=== PATIENT | female | born 2000 ===

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

== ENCOUNTER 2022-07-07 18:29 | Emergency (ER) | payer MEDICAID, SELFPAY ==
[2022-07-07] VITALS (17 sets, daily range): BP systolic 102–133; BP diastolic 53–110; PULSE 70–95; RESP 16–35; TEMP 36.6; O2SAT 96–100; BMI 22.3
--- NOTE | 2022-07-07 19:20 | DI.US.S_ITS ---
PROCEDURE: US ABDOMEN LIMITED INDICATIONS: EPIGASTRIC PAIN RADIATING TO BACK TECHNIQUE: Real-time focused scanning was performed of the abdomen, with image documentation. COMPARISON: [facility], CT, CT ABDOMEN PELVIS W CON, 07/07/2022, 21:16. FINDINGS: The liver demonstrates increased no focal mass lesions. The gallbladder demonstrates no stones, wall thickening, or pericholecystic fluid. No intra or extrahepatic biliary ductal dilatation. Visualized pancreas appears unremarkable sonographically. IMPRESSION: 1. No evidence of cholelithiasis or cholecystitis. Dictated by: Robin Lazar M.D. on 07/07/2022 at 21:22 Approved by: Robin Lazar M.D. on 07/07/2022 at 21:23
--- NOTE | 2022-07-07 19:21 | ED.ABDPAIN ---
HPI - Abdominal Pain General Chief Complaint: Abdominal Pain Stated Complaint: sick for three days, not eating, shaking, vomiting Time Seen by Provider: 07/07/22 19:00 Source: patient Mode of arrival: Wheelchair History of Present Illness HPI narrative: 21-year-old female nonsmoker with history of asthma presents with family in the chief complaint of 3 or 4 days of abdominal pain, nausea and vomiting. She states that she is never had this before and denies exposure to ill persons. She denies any new medications or dietary change. She states that she has severe epigastric pain that radiates to her back. It seems to be made worse by pretty much everything which includes motion, vomiting and eating. She is had a few episodes of loose stools. She is feeling a bit weak and lightheaded. She denies any fever or chills. Related Data Home Medications Medication Instructions Recorded Confirmed albuterol sulfate 90 mcg/actuation 1 - 2 puff inhalation Q4HR PRN 12/16/18 05/22/22 aerosol inhaler cough, wheeze, sob Previous Rx's Medication Instructions Recorded albuterol sulfate 0.63 mg/3 mL 0.63 mg (3 mL) inhalation QID PRN 04/21/21 solution for nebulization shortness of breath or wheezing #75 mL albuterol sulfate 90 mcg/actuation 2 puff inhalation Q4-6H PRN 04/21/21 aerosol inhaler shortness of breath or wheezing #8.5 grams citalopram 10 mg tablet 10 mg PO DAILY #60 tabs 05/22/22 fluticasone propionate 44 2 puff inhalation DAILY #10.6 grams 05/22/22 mcg/actuation HFA aerosol inhaler (Flovent HFA) norethindrone-e.estradiol 1 tab PO DAILY #84 tabs 05/22/22 triphasic 0.5 mg/0.75 mg/1 mg-35 mcg tablet (Pirmella) amoxicillin 875 mg-potassium 1 tab PO Q12H #20 tabs 07/07/22 clavulanate 125 mg tablet hydrocodone 5 mg-acetaminophen 325 1 tab PO Q4-6H PRN pain #10 tabs 07/07/22 mg tablet hyoscyamine sulfate 0.125 mg tablet 0.125 mg PO BID-QID PRN dyspepsia 07/07/22 #20 tabs ondansetron 4 mg disintegrating 4 mg PO TID-QID PRN nausea and 07/07/22 tablet vomiting #10 tabs pantoprazole 40 mg tablet,delayed 40 mg PO DAILY #30 tabs 07/07/22 release (Protonix) Allergies Allergy/AdvReac Type Severity Reaction Status Date / Time No Known Drug Allergies Allergy Verified 04/21/21 09:20 Review of Systems Review of Systems Narrative: GENERAL: See HPI HEENT: Denies sinus pain, ear pain, sore throat, difficulty swallowing, dizziness. RESPIRATORY: Denies dyspnea, cough, wheezing, hemoptysis, sputum. CARDIOVASCULAR: Denies chest pain, palpitations, orthopnea, edema, GASTROINTESTINAL: See HPI : Denies dysuria, frequency, incontinence, hematuria, urinary retention. MUSCULOSKELETAL: denies weakness, joint pain, or bony pain SKIN: Denies rash, skin lesions, or other NEUROLOGIC: Denies weakness, headache, numbness, change in speech, confusion, seizures, incoordination. PSYCHIATRIC: No concerning psychosocial issues. 12 point review of systems is negative except for those stated above Patient History Medical History ADHD (~2005) Anxiety (~2018) Asthma (~2004) Depression (~2018) Surgical History Anesthesia No pertinent past surgical history Status post breast reduction (~05/2020) [place] teeth removed (~02/2017) Social History Smoking Status: Never smoker Smoking Status: Never smoker alcohol intake frequency: holidays/special occasions only Substance Use Type: marijuana Exam Narrative Exam Narrative: GENERAL: [21] year old patient appears stated age. Well-developed patient, in mild distress. Holding an emesis bag, clearly feeling unwell HEAD: Atraumatic. Normocephalic. EYES: Pupils equal round and reactive. Extraocular motions intact. No scleral icterus. No injection or drainage. ENT: Nose without bleeding, purulent drainage. Throat without erythema, tonsillar hypertrophy or exudate. Airway patent. NECK: Trachea midline. Non tender CARDIOVASCULAR: Tachycardic but regular rhythm without murmurs, gallops, or rubs. RESPIRATORY: Clear to auscultation. Breath sounds equal bilaterally. No wheezes, rales, or rhonchi. GASTROINTESTINAL: Abdomen soft, epigastric pain on palpation, nondistended. EXTREMITIES: No edema or joint tenderness. BACK: Nontender without deformity or crepitance. No flank tenderness. NEURO: AOx3. SKIN: No rash or erythema of visible areas Initial Vital Signs Initial Vital Signs: Vital Signs Temperature 97.9 F 07/07/22 18:46 Pulse Rate 83 07/07/22 18:46 Respiratory Rate 16 07/07/22 18:46 Blood Pressure 117/59 L 07/07/22 18:46 Pulse Oximetry 98 07/07/22 18:46 Oxygen Delivery Method Room Air 07/07/22 18:46 Course Orders Ordered: ED Orders 07/07/22 17:00 Complete Blood Count AUTO DIFF Stat Comprehensive Metabolic Panel Stat Lipase Stat 07/07/22 19:20 US abdomen limited Stat 07/07/22 20:54 CT abdomen pelvis w con Stat 07/07/22 21:01 Ictotest Urine Stat UA Complete [Urinalysis and Microscopic] Stat Discontinued Medications Hydrocodone Bitart/Acetaminophen (Hydrocodone/Acet 5/325 Prepack) 1 bottle MISC SEEINSTR ONE Stop: 07/07/22 23:11 Last Admin: 07/07/22 23:16 Dose: 1 bottle Documented By: ANTONIO Hydromorphone HCl (Hydromorphone 0.5 Mg Inj) 0.5 mg IV NOW ONE Stop: 07/07/22 20:18 Last Admin: 07/07/22 20:21 Dose: 0.5 mg Documented By: ANTONIO Hydromorphone HCl (Hydromorphone 0.5 Mg Inj) 0.5 mg IV NOW ONE Stop: 07/07/22 23:11 Last Admin: 07/07/22 23:16 Dose: 0.5 mg Documented By: SPF Sodium Chloride (Normal Saline 0.9%) 1,000 mls @ 1,000 mls/hr IV BOLUS ONE Stop: 07/07/22 20:16 Last Infusion: 07/07/22 20:30 Dose: 0 mls/hr Documented By: Admin: 07/07/22 19:29 Dose: 1,000 mls/hr Documented By: Ondansetron HCl (Ondansetron 4 Mg/2 Ml Inj) 4 mg IV NOW ONE Stop: 07/07/22 19:18 Last Admin: 07/07/22 19:30 Dose: 4 mg Documented By: Ondansetron HCl (Ondansetron 4 Mg Odt Prepack) 1 bottle MISC SEEINSTR ONE Stop: 07/07/22 23:11 Last Admin: 07/07/22 23:16 Dose: 1 bottle Documented By: SPF Pantoprazole Sodium (Pantoprazole 40 Mg Vial) 40 mg IV NOW ONE Stop: 07/07/22 19:18 Last Admin: 07/07/22 19:30 Dose: 40 mg Documented By: Vital Signs Vital signs: Vital Signs - 8 hr 07/07/22 18:46 07/07/22 19:04 07/07/22 19:06 Temperature 97.9 F Pulse Rate 83 95 H Respiratory Rate 16 35 H Blood Pressure 117/59 L 133/110 H Pulse Oximetry 98 Oxygen Delivery Method Room Air 07/07/22 19:06 07/07/22 19:30 07/07/22 19:35 Temperature Pulse Rate 88 94 H Respiratory Rate 22 22 Blood Pressure 126/66 Pulse Oximetry 99 99 Oxygen Delivery Method 07/07/22 19:35 07/07/22 20:00 07/07/22 20:00 Temperature Pulse Rate 79 80 Respiratory Rate 20 22 Blood Pressure 110/53 L Pulse Oximetry 100 100 Oxygen Delivery Method 07/07/22 20:26 07/07/22 20:26 07/07/22 20:30 Temperature Pulse Rate 91 H Respiratory Rate 20 Blood Pressure 120/60 118/59 L Pulse Oximetry 99 Oxygen Delivery Method 07/07/22 20:30 07/07/22 21:00 07/07/22 21:01 Temperature Pulse Rate 79 91 H Respiratory Rate 22 18 Blood Pressure 102/59 L Pulse Oximetry 98 99 Oxygen Delivery Method 07/07/22 21:01 07/07/22 21:30 07/07/22 22:00 Temperature Pulse Rate 85 74 72 Respiratory Rate 17 24 23 Blood Pressure Pulse Oximetry 97 97 96 Oxygen Delivery Method Room Air 07/07/22 22:30 07/07/22 23:00 07/07/22 23:09 Temperature Pulse Rate 87 82 86 Respiratory Rate 25 H Blood Pressure Pulse Oximetry 97 96 97 Oxygen Delivery Method Room Air Room Air 07/07/22 23:09 Temperature Pulse Rate Respiratory Rate Blood Pressure 104/58 L Pulse Oximetry Oxygen Delivery Method MDM - Abdominal Pain Lab Data 07/07/22 17:00 07/07/22 17:00 Labs: Lab Results 07/07/22 07/07/22 07/07/22 Range/Units 17:00 17:00 21:01 WBC 12.2 H (4.5-11.0) X10^3/uL RBC 4.60 (4.0-5.2) X10^6/uL Hgb 13.9 (12.0-16.0) g/dL Hct 40.8 (36-46) % MCV 88.7 (80-100) fL MCH 30.3 (26-34) PG MCHC 34.1 (30-36) % RDW 11.9 (11.6-14.8) % Plt Count 440 H (150-400) X10^3/uL Neut % (Auto) 79.1 H (50-75) % Lymph % (Auto) 16.1 L (25-40) % Reeves % (Auto) 3.0 (3-14) % Eos % (Auto) 1.3 L (2-4) % Baso % (Auto) 0.5 (0-2) % Neut # (Auto) 9600 H (4958-7936) /uL Lymph # (Auto) 2000 (7245-3023) /uL Reeves # (Auto) 400 (0-900) /uL Eos # (Auto) 200 (0-450) /uL Baso # (Auto) 100 (0-100) /uL Sodium 137 (137-145) mmol/L Potassium 3.6 (3.4-5.1) mmol/L Chloride 106 (98-107) mmol/L Carbon Dioxide 18 L (22-32) mmol/L BUN 18 H (7-17) mg/dL Creatinine 0.82 (0.52-1.04) mg/dL Estimated GFR > 60 (>60) mL/min BUN/Creatinine Ratio 22.0 (6-22) Glucose 134 H (70-100) mg/dL Calcium 9.8 (8.4-10.2) mg/dL Total Bilirubin 2.8 H (0.2-1.3) mg/dL AST 35 (14-36) IU/L ALT 34 (<35) IU/L Alkaline Phosphatase 86 (38-126) U/L Total Protein 8.7 H (6.3-8.2) g/dL Albumin 5.1 H (3.5-5.0) g/dL Globulin 3.6 (1.7-4.1) g/dL Albumin/Globulin Ratio 1.4 (1.0-2.8) Lipase 39 (23-300) U/L Urine Color Yellow Urine Appearance Clear Urine pH 5.5 (4.5-8.0) Ur Specific [place] 1.025 (1.000-1.035) Urine Protein Negative (Negative) Urine Glucose (UA) Negative (Negative) g/dL Urine Ketones 3+ H (NEGATIVE) Urine Occult Blood 2+ H (Negative) Urine Nitrate Negative (Negative) Urine Bilirubin 1+ H (NEGATIVE) Ur Bilirubin Confirm Positive H (Negative) Urine Urobilinogen 1.0 (0.2) E.U./dL Ur Leukocyte Esterase Negative (NEGATIVE) Urine RBC 0-1/hpf (0-5/HPF) Urine WBC 0-1/hpf (0-5/HPF) Ur Squamous Epith Cells 1-5 /hpf D (0-5/HPF) Urine Bacteria Few (2-10) H (None) Urine Mucus 2+ H (Negative) Ur Culture Indicated? Cult not indicated Point of care testing: Urine Dip Bedside Urine Glucose Negative Bedside Urine Bilirubin - Negative Bedside Urine Ketone +++ 80 Urine Specific [place] 1.03 Bedside Urine Occult Blood + Bedside Urine pH 6 Bedside Urine Protein - Negative Bedside Urine Urobilinogen - Negative Bedside Urine Nitrite - Negative Bedside Urine Leukocytes - Negative Esterase MDM Narrative Medical decision making narrative: [21] year old patient presents with epigastric pain, nausea and vomiting Multiple etiologies for patient's symptoms considered including, but not limited to: [Gallbladder disease versus pancreatitis versus bowel obstruction versus other] Prior Charts reviewed in our EMR Primary Historian: patient Labs reviewed and interpreted by myself: Subtle leukocytosis with no absolute left shift, electrolytes within normal, bilirubin slightly elevated Imaging reviewed: Ultrasound without evidence of cholelithiasis or Colace cystitis, abdomen and pelvis CT demonstrates findings consistent with colitis Patient's symptoms improved over duration of stay with above-stated therapies. Pain well controlled, she is tolerating orals. We did discuss the utility of antibiotics versus watchful waiting and given her elevation white blood cells we like to treat with antibiotics. Findings and discharge diagnosis discussed with patient/family followed by verbalization of understanding Return precautions discussed with patient/family whom verbalize understanding of diagnosis and plan Discharge Plan Departure Patient Disposition: Home Clinical Impression: Colitis Instructions: DI for Colitis Activity Restrictions/Additional Instructions: *You have been diagnosed with [abdominal pain due to colitis * As we discussed your history and physical exam as well as labs and imaging are very reassuring. There is no evidence of any severe diagnoses that would require a surgical intervention or hospitalization *What to do: *Please continue to take your regular medications as directed. [x ] New medication prescriptions sent to your pharmacy: [[facility] in [place] ] *Please follow up with your primary care provider in 2-3 days, call for an appointment. Let them know you were seen in the Emergency Department and that we ask that you be seen in follow up. We will electronically transmit a record of today's note if your PCP is in our system *Please consider a clear liquid diet for the next 24-48 hours and then slowly advance to regular as tolerated. Also, try to avoid alcohol, nicotine, caffeine, spicy, acidic or fatty foods as this may worsen your symptoms *If you do not have a primary care provider please contact the [facility] Resource line at [phone]. They will ask some questions about your medical history and help get you set up with a doctor in the community. *Return to Emergency Department if you should have any new, worsening or concerning symptoms, such as [fever greater than 101 F, shaking chills, worsening pain, persistent vomiting or other bothersome symptoms] Prescriptions: New hydrocodone-acetaminophen 5-325 mg tablet 1 tab PO Q4-6H PRN (Reason: pain) Qty: 10 0RF pantoprazole [Protonix] 40 mg tablet,delayed release (DR/EC) 40 mg PO DAILY Qty: 30 0RF hyoscyamine sulfate 0.125 mg tablet 0.125 mg PO BID-QID PRN (Reason: dyspepsia) Qty: 20 0RF ondansetron 4 mg tablet,disintegrating 4 mg PO TID-QID PRN (Reason: nausea and vomiting) Qty: 10 0RF amoxicillin-pot clavulanate 875-125 mg tablet 1 tab PO Q12H Qty: 20 0RF No Action Flovent HFA 44 mcg/actuation HFA aerosol inhaler 2 puff INHALATION DAILY Qty: 10.6 2RF citalopram 10 mg tablet 10 mg PO DAILY Qty: 60 0RF Pirmella 0.5/0.75/1 mg- 35 mcg tablet 1 tab PO DAILY Qty: 84 3RF albuterol sulfate 90 mcg/actuation HFA aerosol inhaler 1 - 2 puff INHALATION Q4HR PRN (Reason: cough, wheeze, sob) Patient Comments: INHALE 1 TO 2 PUFFS BY MOUTH EVERY 4 HOURS NEEDED FOR COUGH WHEEZEOR SHORTNESS OF BREATH albuterol sulfate 0.63 mg/3 mL solution for nebulization 0.63 mg INHALATION QID PRN (Reason: shortness of breath or wheezing) Qty: 75 0RF albuterol sulfate 90 mcg/actuation HFA aerosol inhaler 2 puff INHALATION Q4-6H PRN (Reason: shortness of breath or wheezing) Qty: 8.5 0RF Referrals: Rah Woodall MD [Primary Care Provider] - Stand Alone Forms: Patient Portal/API, Work Release Note
[2022-07-07 19:26] LABS: Add Manual Diff / Slide Review NO; Basophils Absolute Auto 100 /uL (0-100); Basophils Percent Auto 0.5 % (0-2); Eosinophils Absolute Auto 200 /uL (0-450); Eosinophils Percent Auto 1.3 % (2-4); Hematocrit 40.8 % (36-46); Hemoglobin 13.9 g/dL (12.0-16.0); Lymphocytes Absolute Auto 2000 /uL (1100-4500); Lymphocytes Percent Auto 16.1 % (25-40); Mean Corpuscular HGB Conc 34.1 % (30-36); Mean Corpuscular Hemoglobin 30.3 PG (26-34); Mean Corpuscular Volume 88.7 fL (80-100); Monocytes Absolute Auto 400 /uL (0-900); Neutrophils Absolute Auto 9600 /uL (1500-7000); Neutrophils Percent Auto 79.1 % (50-75); Platelet Count 440 X10^3/uL (150-400); Red Cell Distribution Width 11.9 % (11.6-14.8); White Blood Cell Count 12.2 X10^3/uL (4.5-11.0)
[2022-07-07] MEDS: SODIUM CHLORIDE 0.9% 1,000 ML 1000 ML IV (19:29)
[2022-07-07] MEDS: PANTOPRAZOLE 40 MG VIAL IV (19:30)
[2022-07-07] MEDS: ONDANSETRON 4 MG/2 ML INJ IV (19:30)
[2022-07-07 19:33] LABS: HEMOLYSIS < 15 (0-50); Potassium 3.6 mmol/L (3.4-5.1)
[2022-07-07 19:34] LABS: Alanine Aminotransferase 34 IU/L (<35); Albumin 5.1 g/dL (3.5-5.0); Albumin Globulin Ratio 1.4 (1.0-2.8); Alkaline Phosphatase 86 U/L (38-126); Aspartate Aminotransferase 35 IU/L (14-36); Bilirubin Total 2.8 mg/dL (0.2-1.3); Blood Urea Nitrogen 18 mg/dL (7-17); Calcium 9.8 mg/dL (8.4-10.2); Carbon Dioxide 18 mmol/L (22-32); Chloride 106 mmol/L (98-107); Estimated Glomerular Filt Rate > 60 mL/min (>60); Globulin 3.6 g/dL (1.7-4.1); Glucose 134 mg/dL (70-100); Lipase 39 U/L (23-300); Sodium 137 mmol/L (137-145); Total Protein 8.7 g/dL (6.3-8.2)
[2022-07-07] MEDS: HYDROMORPHONE 0.5 MG INJ IV ×2 (20:21→23:16)
--- NOTE | 2022-07-07 20:54 | DI.CT.S_ITS ---
PROCEDURE: CT ABDOMEN PELVIS W CON INDICATIONS: severe pain, N/V TECHNIQUE: After the administration of IV contrast, axial sections were acquired from the lung bases to the pubic symphysis. Coronal and sagittal reformats were performed. For radiation dose reduction, the following was used: automated exposure control, adjustment of mA and/or kV according to patient size. COMPARISON: [facility], , ABDOMEN LIMITED, 07/07/2022, 20:40. FINDINGS: Image quality: Excellent. Lung bases: Unremarkable. Heart: Heart is normal in size. ABDOMEN: Liver: No mass lesion. Gallbladder: Within normal limits without calcified gallstones. Biliary ducts: No biliary ductal dilatation. Pancreas: Unremarkable. Spleen: Normal in size. Adrenal Glands: No adrenal nodules. Kidneys and Ureters: No hydronephrosis. Stomach and Bowel: Stomach and small bowel loops are normal in caliber and wall thickness. The appendix is normal. There is mild segmental wall thickening of the ascending and transverse colon with mild mucosal enhancement and minimal pericolonic fat stranding suggestive of a mild colitis. Colonic diverticulosis is present without acute diverticulitis. Peritoneum: There is a small amount of pelvic free fluid which appears within physiologic limits. No free air. Ventral Wall: No hernia. Abdominal Nodes: No retroperitoneal or mesenteric adenopathy by size criteria. Vessels: Aorta and inferior vena cava are normal in size. PELVIS: Pelvic Organs: Unremarkable. Bladder: Unremarkable. Pelvic Nodes: No enlarged lymph nodes. Miscellaneous: No inguinal hernias are seen. Bones: Visualized osseous structures demonstrate no suspicious focal lesions. IMPRESSION: 1. Mild segmental wall thickening of the ascending and transverse colon compatible with an infectious or inflammatory colitis. 2. No evidence of bowel obstruction. 3. No evidence of appendicitis. Dictated by: Robin Lazar M.D. on 07/07/2022 at 22:16 Approved by: Robin Lazar M.D. on 07/07/2022 at 22:20
[2022-07-07 21:42] LABS: Appearance Urine UA CLEAR; Bilirubin Urine UA 1+ (NEGATIVE); Color Urine UA YELLOW; Glucose Urine UA NEGATIVE (Negative); Ketones Urine UA 3+ (NEGATIVE); Leukocyte Esterase Urine UA NEGATIVE (NEGATIVE); Nitrite Urine UA NEGATIVE (Negative); Occult Blood Urine UA 2+ (Negative); Protein Urine UA NEGATIVE (Negative); Specific Gravity Urine UA 1.025 (1.000-1.035)
[2022-07-07 21:48] LABS: pH Urine UA 5.5 (4.5-8.0)
[2022-07-07 21:51] LABS: Bacteria Urine Few (2-10); Culture Indicated Urine Cult Not Indicated; Ictotest Urine Positive (Negative); Mucus Urine 2+ (Negative); RBC Urine 0-1/HPF (0-5/HPF); Squamous Epithelial Cell Urine 1-5 /HPF (0-5/HPF); WBC Urine 0-1/HPF (0-5/HPF)
[2022-07-07] MEDS: HYDROCODONE/ACET 5/325 PREPACK 1 BOTTLE MISC (23:16)
[2022-07-07] MEDS: ONDANSETRON 4 MG ODT PREPACK 1 BOTTLE MISC (23:16)
== END 2022-07-07 23:39 | disposition home or self-care (01) ==
PROVIDERS: Emergency Provider Emergency Medicine; PCP Family Medicine
DX: K52.9 Noninfective gastroenteritis and colitis, unspecified (principal); R11.2 Nausea with vomiting, unspecified
CPT/HCPCS: 36415; 74177; 76705; 80053; 81001; 81003; 83690; 85025; 96374; 96375; 96376; 99284; C9113; J1170; J2405; Q9967

== ENCOUNTER → 2022-08-10 07:41 | Outpatient (CLI) | payer MEDICAID, SELFPAY ==
--- NOTE | 2022-08-10 07:42 | DI.NM.S_ITS ---
PROCEDURE: NM HIDA WITH CCK PHARMACEUTICAL: 5.5 mCi Tc-99m mebrofenin IV; 1.2 mcg CCK IV. INDICATIONS: RUQ n/v after eating TECHNIQUE: Following intravenous administration of Tc-99m mebrofenin, sequential anterior abdominal images were obtained. To evaluate the contractile response of the gallbladder in response to Cholecystokinin (CCK), sincalide (0.02 ?g/kg) was administered by slow intravenous infusion approximately 60 minutes after the administration of the radiopharmaceutical. Sequential imaging was continued for 30 minutes after the start of CCK infusion. Gallbladder ejection fraction was calculated. COMPARISON: None. FINDINGS: Biliary scan: There is normal tracer uptake and excretion by the liver. There is normal visualization of the intrahepatic ducts, common bile duct, and gallbladder. There is normal tracer transit into the duodenum. CCK stimulation: There is normal contractile response of the gallbladder to CCK infusion. The calculated gallbladder ejection fraction is 86%; normal values are above 35%. It has been shown that any patient abdominal pain after CCK administration is related to the rate of CCK injection, rather than to any underlying gallbladder disease (Clinical Nuclear Medicine 2012; 37: 63-70. Journal of Nuclear Medicine 2014; 55: 1-9). IMPRESSION: 1. Normal filling of gallbladder. No evidence for acute cholecystitis. 2. Normal contractile response of gallbladder to CCK stimulation. Dictated by: Rashi Ballesteros M.D. on 08/10/2022 at 11:21 Approved by: Rashi Ballesteros M.D. on 08/10/2022 at 11:22
== END ==
PROVIDERS: PCP Family Medicine; Referring Provider Family Medicine; Visit Provider Family Medicine
DX: R10.11 Right upper quadrant pain (principal); R11.2 Nausea with vomiting, unspecified
CPT/HCPCS: 78227; A9537; J2805

== ENCOUNTER 2022-08-21 13:15 | Day surgery (SDC) | payer MEDICAID, SELFPAY ==
--- NOTE | 2022-08-21 | PATH_ITS ---
[facility] Accession Number: [id number] No. of containers..07 Tissue . 01 Material submitted: . PART A: duodenum - DUODENUM PART B: pylorus - PYLORIS PART C: stomach - ANTRUM PART D: esophagus - GE JUNCTION PART E: ileum - TERMINAL ILLEUM PART F: colon - RANDOM COLON PART G: rectum - RANDOM RECTAL BIOPSIES . 01 Diagnosis: A. Duodenum, Biopsy: Duodenal mucosa with no diagnostic abnormality. Negative for active inflammation, features of sprue, dysplasia, or malignancy. . B. Stomach, Pylorus, Biopsy: Gastric antral mucosa with minimal chronic inflammation. Negative for Helicobacter organisms by immunohistochemistry. Negative for intestinal metaplasia. Negative for dysplasia or malignancy. . C. Gastric Antrum, Biopsy: Gastrix oxyntic mucosa with no diagnostic abnormality. No evidence of Helicobacter organisms on H/E stain. Negative for intestinal metaplasia. Negative for dysplasia or malignancy. . D. Gastroesophageal Junction, Biopsy: Squamous epithelium with no diagnostic abnormality. No glandular mucosa present for evaluation. Negative for dysplasia or malignancy. . E. Terminal Ileum, Biopsy: Ileal mucosa with no diagnostic abnormality. Negative for active inflammation, granulomas, dysplasia or malignancy. . F. Random Colon, Biopsies: Focal active colitis; please see comment. Negative for granulomas, dysplasia or malignancy. . G. Rectum, Biopsies: Colonic mucosa with no diagnostic abnormality. Negative for active, chronic, and microscopic colitis. Negative for dysplasia and malignancy. . [facility] 08/28/2022 1503 Local . 01 Comment: Part F: The findings in the random colon biopsy are most suggestive of an acute self-limited colitis (infectious versus drug/toxin induced). . 01 Electronically signed: . Blair Villasenor MD, PhD, Pathologist NPI- [id number] . 01 Gross description: . Part A: DUODENUM: Received in formalin is 1 fragment(s) of palomo, soft tissue measuring 0.4 x 0.2 x 0.2 cm submitted entirely in 1 cassette(s) Part B: PYLORIS: Received in formalin is 2 fragment(s) of palomo, soft tissue measuring 0.3 x 0.2 x 0.1 cm to 0.2 x 0.2 x 0.1 cm submitted entirely in 1 cassette(s) Part C: ANTRUM: Received in formalin is 2 fragment(s) of palomo, soft tissue measuring 0.3 x 0.1 x 0.1 cm to 0.2 x 0.1 x 0.1 cm submitted entirely in 1 cassette(s) Part D: GE JUNCTION: Received in formalin is 1 fragment(s) of palomo, soft tissue measuring 0.3 x 0.1 x 0.1 cm submitted entirely in 1 cassette(s) Part E: TERMINAL ILLEUM: Received in formalin is multiple fragment(s) of palomo, soft tissue measuring 0.4 x 0.2 x 0.1 cm in aggregate submitted entirely in 1 cassette(s) Part F: RANDOM COLON: Received in formalin is multiple fragment(s) of palomo, soft tissue measuring 0.5 x 0.3 x 0.1 cm in aggregate submitted entirely in 1 cassette(s) Part G: RANDOM RECTAL BIOPSIES: Received in formalin is multiple fragment(s) of palomo, soft tissue measuring 0.4 x 0.2 x 0.1 cm in aggregate submitted entirely in 1 cassette(s) /[facility] 08/26/2022 1250 Local . 01 Microscopic: . B. An immunohistochemical stain was performed to evaluate for Helicobacter organisms and is negative. The control stain showed appropriate reactivity. . * This test was developed and its performance characteristics determined by [employer]. It has not been cleared or approved by the U.S. Food and Drug Administration. The FDA has determined that such clearance or approval is not necessary. This test is used for clinical purposes. It should not be regarded as investigational or for research. . 01 Pathologist provided ICD-10: K52.9, K29.70 . 01 CPT . 651865, 800627, 474501, 774604, 578740, 697909, 007191, G59032 Specimen Comment: A courtesy copy of this report has been sent to [facility] Performed at: 01 [facility] [address], [place], [place] [id number] MD Robin Hansen MD Phone: [phone]
[2022-08-21 13:59] VITALS: BP 112/74; PULSE 74; RESP 18; TEMP 36.1; BMI 22.3
--- NOTE | 2022-08-21 14:30 | PM.HP.1 ---
History of Present Illness History of Present Illness Date Patient Seen: 08/21/22 Time Patient Seen: 14:30 Chief complaint: EGD/Colonoscopy Narrative: 21-year-old female was seen my office 07/21/2022: Ms. Panda presents today stating that she saw a new doctor recently and had been referred after a emergency room visit 2 weeks ago.? She presented to the emergency room with severe epigastric abdominal pain nausea and vomiting.? A leukocytosis was found as well as a colitis on a CT scan and a right upper quadrant ultrasound was done and negative for inflammation or stones in the gallbladder. Ultimately she says that she is had this sort of pain intermittently for ?years?.? She does associate this with certain types of foods and states that she has been ?sensitive? to dairy and gluten since she was 15 or 16 years old.? She refers to her episodes as ?flares? and notes that they occur after eating ?something? she thinks that fatty foods and things that are unhealthy tend to cause it.? The flares do not necessarily occur immediately after eating and sometimes they can happen at nighttime if she ate something for lunch she might have symptoms at 9 or 10:00 p.m..? She does not think that they occur randomly, and feels they mostly are associated with dairy gluten or something else unhealthy that she is eaten.? This most recent episode 2 weeks ago was severe and she was vomiting for 3 days prior.? She lost about 10 lb during the episode.? An overall was sick for 3 or 4 days.? At the time she went to the emergency room she could barely even tolerate drinking liquids and she reports that she actually is still feeling some of the same knowing upper abdominal pain that she had in the ER but she has been watching what she eats very carefully for the last few weeks and if symptoms are overall improved.? She is able to eat now and drink without nausea and the pain has greatly subsided. Since she saw me in the office she is been taken pantoprazole daily and she thinks it has helped in addition she has changed her diet somewhat to try to avoid gluten and dairy products and she thinks that has helped with her symptoms as well though she still is having constipation COUNT INCLUDES THE [facility] Medical History ADHD (~2004) Anxiety (~2018) Asthma (~2004) Depression (~2018) Surgical History Anesthesia No pertinent past surgical history Status post breast reduction (~05/2020) [place] teeth removed (~02/2017) Social History household members: family Smoking Status: Never smoker Meds Home Medications and Allergies Home Medications Medication Instructions Recorded Confirmed Type albuterol sulfate 90 mcg/actuation 1 - 2 puff inhalation Q4HR PRN 12/16/18 08/21/22 History aerosol inhaler cough, wheeze, sob albuterol sulfate 0.63 mg/3 mL 0.63 mg (3 mL) inhalation QID PRN 04/21/21 08/21/22 Rx solution for nebulization shortness of breath or wheezing #75 mL ondansetron 4 mg disintegrating 4 mg PO TID-QID PRN nausea and 07/07/22 08/21/22 Rx tablet vomiting #10 tabs pantoprazole 40 mg tablet,delayed 40 mg PO DAILY #30 tabs 07/10/22 08/21/22 Rx release (Protonix) citalopram 20 mg tablet 20 mg PO DAILY #90 tabs 07/28/22 08/21/22 Rx Allergies Allergy/AdvReac Type Severity Reaction Status Date / Time No Known Drug Allergies Allergy Verified 08/21/22 13:35 Exam Vital Signs (past 8 hours): - 08/21/22 13:59 Temperature 97 F L Pulse Rate 74 Respiratory Rate 18 Blood Pressure 112/74 Oxygen Delivery Method Room Air Oxygen Delivery Method Room Air Const General: cooperative, healthy appearing and comfortable Nutritional Appearance: thin Orientation: alert, awake and oriented x3 HENMT Head: normal to inspection Eyes General: appearance normal, both eyes and all related structures Resp Effort & Inspection: normal respiratory effort and able to speak in complete sentences GI Palpation: soft and tender (Very mild upper abdominal tenderness) Assessment & Plan Assessment and plan (1) Chronic abdominal pain: Status: Acute Assessment & Plan narrative: Presents today for screening colonoscopy I discussed the risks benefits and alternatives including but not limited to perforation of the colon and an incomplete exam she fully understands these risks and would like to proceed. I also discussed the risks benefits alternatives of EGD including injury to the esophagus stomach or duodenum requiring surgery and lack of diagnostic information. She understands this and would like to proceed.
[2022-08-21] MEDS: LACTATED RINGERS 1,000 ML 42 ML IV (16:26)
[2022-08-21 16:30] VITALS: BP 80/40; PULSE 100; RESP 12; TEMP 36.2; O2SAT 96
[2022-08-21 16:35] VITALS: BP 95/60; PULSE 98; RESP 14; O2SAT 96
[2022-08-21 16:40] VITALS: BP 105/63; PULSE 82; RESP 14; O2SAT 96
--- NOTE | 2022-08-21 16:46 | PM.OP.EC ---
Operative Date/Time/Diagnoses Date of procedure: 08/21/22 Time of procedure: 16:46 Pre-op diagnosis: Abdominal pain and colitis on CT scan she also has epigastric pain which has been relieved with Protonix. Post-op diagnosis: same Procedure & Clinicians Study performed: EGD and biopsy, colonoscopy and biopsy Same procedure as scheduled: Yes Indications: Abdominal pain, colitis on CT scan, epigastric pain that is relieved with Protonix Surgeon: Darshana Quinn Procedure Notes Procedure in detail: Patient was taken to the endoscopy suite and placed supine. Time-out was performed. A bite block was placed. Conscious sedation was induced and monitored by an anesthesiologist throughout the case. The EGD scope was taken and placed into the mouth threaded easily down into the esophagus and advanced to the stomach. There was some gastritis in the stomach and in particular the antrum and pylorus appeared more irritated. The scope was advanced into the duodenum and biopsies were taken although the duodenum looked relatively normal. The scope was then withdrawn and retroflexed a photograph of the GE junction was taken. Additional biopsies of the antrum and the pyloric region were taken. The scope was then withdrawn into the esophagus and a few biopsies of the GE junction were taken although the appearance of the GE junction was normal. There was no hiatal hernia. The esophagus appeared normal as well. The scope was then withdrawn completely the patient tolerated the procedure well. She was then turned in left lateral decubitus position. A digital rectal exam was performed and there were no masses or strictures. The colonoscope was introduced to the anal canal and advanced through to the cecum with relative ease. A photograph of the appendiceal orifice was obtained. The bowel prep was excellent about stent bowel prep score of 3. The scope was used to intubate the terminal ileum. Photographs were obtained. Several biopsy specimens were also obtained. The scope was then withdrawn into the cecum and as the scope was withdrawn several random colon biopsies were taken throughout the cecum ascending transverse and descending colon. These were sent together in the same specimen jar. Finally the scope was withdrawn into the rectum where additional random biopsies were taken there was some mild irritation of the rectum but likely due to prep rather than pathology. The scope was then withdrawn from the anal canal and the patient went in the to the postoperative care unit in good condition. Findings: gastritis Specimen(s): other (1. Duodenum 2. Pylorus 3. Antrum 4. GE junction 5. Terminal ileum 6. Random colon biopsies 7. Random rectal biopsies) Complications: none Post-procedure Recommendations: Will call with biopsy results and Other recommendation (Continue Protonix)
[2022-08-21 16:55] VITALS: BP 104/68; PULSE 88; RESP 18; TEMP 36.2
[2022-08-21 17:29] VITALS: BP 100/62; PULSE 60; RESP 16; TEMP 36.4; O2SAT 100
== END 2022-08-21 17:30 | disposition home or self-care (01) ==
PROVIDERS: PCP Family Medicine; Referring Provider Surgery; Visit Provider Surgery
PROC: 0DJ08ZZ Inspection of Upper Intestinal Tract, Via Natural or Artificial Opening Endoscopic (ICD-10-PCS; CPT 43235; principal; 2022-08-21 14:30)
PROC: 0DJD8ZZ Inspection of Lower Intestinal Tract, Via Natural or Artificial Opening Endoscopic (ICD-10-PCS; CPT 45378; 2022-08-21 14:30)
DX: K52.9 Noninfective gastroenteritis and colitis, unspecified (principal); R10.13 Epigastric pain
CPT/HCPCS: 45380; 43239; J0330; J2250; J2704; J3010

== ENCOUNTER → 2022-09-18 10:17 | Outpatient (CLI) | payer MEDICAID, SELFPAY ==
[2022-09-18 10:32] LABS: Add Manual Diff / Slide Review NO; Basophils Absolute Auto 100 /uL (0-100); Basophils Percent Auto 0.9 % (0-2); Eosinophils Absolute Auto 500 /uL (0-450); Eosinophils Percent Auto 6.8 % (2-4); Hematocrit 37.5 % (36-46); Hemoglobin 12.8 g/dL (12.0-16.0); Lymphocytes Absolute Auto 2400 /uL (1100-4500); Lymphocytes Percent Auto 36.4 % (25-40); Mean Corpuscular HGB Conc 34.1 % (30-36); Mean Corpuscular Hemoglobin 29.9 PG (26-34); Mean Corpuscular Volume 87.9 fL (80-100); Monocytes Absolute Auto 500 /uL (0-900); Monocytes Percent Auto 7.6 % (3-14); Neutrophils Absolute Auto 3200 /uL (1500-7000); Neutrophils Percent Auto 48.3 % (50-75); Platelet Count 370 X10^3/uL (150-400); Red Blood Cell Count 4.27 X10^6/uL (4.0-5.2); Red Cell Distribution Width 12.2 % (11.6-14.8); White Blood Cell Count 6.6 X10^3/uL (4.5-11.0)
[2022-09-18 10:52] LABS: Alanine Aminotransferase 21 IU/L (<35); Albumin 4.3 g/dL (3.5-5.0); Albumin Globulin Ratio 1.4 (1.0-2.8); Alkaline Phosphatase 69 U/L (38-126); Aspartate Aminotransferase 24 IU/L (14-36); BUN Creatinine Ratio 25.7 (6-22); Bilirubin Total 0.7 mg/dL (0.2-1.3); Blood Urea Nitrogen 18 mg/dL (7-17); Calcium 9.1 mg/dL (8.4-10.2); Carbon Dioxide 26 mmol/L (22-32); Chloride 105 mmol/L (98-107); Estimated Glomerular Filt Rate > 60 mL/min (>60); Glucose 79 mg/dL (70-100); HEMOLYSIS < 15 (0-50); Potassium 4.3 mmol/L (3.4-5.1); Sodium 139 mmol/L (137-145); Total Protein 7.3 g/dL (6.3-8.2)
== END ==
PROVIDERS: PCP Family Medicine; Referring Provider Family Medicine; Visit Provider Family Medicine
DX: F41.9 Anxiety disorder, unspecified (principal); G89.29 Other chronic pain; R10.9 Unspecified abdominal pain; R17 Unspecified jaundice
CPT/HCPCS: 36415; 80053; 82248; 85025

== ENCOUNTER 2023-04-23 17:06 | Emergency (ER) | payer MEDICAID, SELFPAY ==
[2023-04-23 17:09] VITALS: BP 123/60; PULSE 80; RESP 18; TEMP 36.9; O2SAT 97; BMI 22.3
--- NOTE | 2023-04-23 17:22 | ED.WOUNDLAC ---
HPI - Wound/Laceration <ELEANOR Lim Last Filed: 04/23/23 18:20> General Chief Complaint: Wound/Laceration Stated Complaint: cat bite/lt hand swelling Time Seen by Provider: 04/23/23 17:17 Source: patient Mode of arrival: Ambulatory History of Present Illness HPI narrative: This is a 22-year-old female presents to the emergency department due to a cat bite to the left hand about 4 hours ago. Unsure of tetanus up-to-date. States that CT is well vaccinated. Presenting to the emergency department due to swelling to the left hand. No purulent discharge or drainage. No fevers. Related Data Previous Rx's Medication Instructions Recorded ondansetron 4 mg disintegrating 4 mg PO TID-QID PRN nausea and 07/07/22 tablet vomiting #10 tabs pantoprazole 40 mg tablet,delayed 40 mg PO DAILY #30 tabs 07/10/22 release (Protonix) albuterol sulfate 0.63 mg/3 mL 0.63 mg (3 mL) inhalation QID PRN 11/12/22 solution for nebulization shortness of breath or wheezing #75 mL amoxicillin 875 mg-potassium 1 tab PO BID #20 tabs 04/23/23 clavulanate 125 mg tablet Allergies Allergy/AdvReac Type Severity Reaction Status Date / Time No Known Drug Allergies Allergy Verified 09/18/22 09:58 Review of Systems <ELEANOR Lim Last Filed: 04/23/23 18:20> Review of Systems Narrative: GENERAL: Denies chills, fatigue, malaise, fever, sweats. HEENT: Denies sinus pain, ear pain, sore throat, difficulty swallowing, dizziness. RESPIRATORY: Denies dyspnea, cough, wheezing, hemoptysis, sputum. CARDIOVASCULAR: Denies chest pain, palpitations, orthopnea, edema, GASTROINTESTINAL: Denies nausea, vomiting, abdominal pain, diarrhea, constipation, melena. : Denies dysuria, frequency, incontinence, hematuria, urinary retention. MUSCULOSKELETAL: denies weakness, joint pain, or bony pain SKIN: Swelling to left hand NEUROLOGIC: Denies weakness, headache, numbness, change in speech, confusion, seizures, incoordination. PSYCHIATRIC: No concerning psychosocial issues. 12 point review of systems is negative except for those stated above Patient History <Andrew Barger PA-C - Last Filed: 04/23/23 18:20> Medical History ADHD (~2004) Anxiety (~2018) Asthma (~2004) Depression (~2018) Surgical History Anesthesia No pertinent past surgical history Status post breast reduction (~05/2020) [place] teeth removed (~02/2017) Social History household members: family Smoking Status: Never smoker Smoking Status: Never smoker alcohol intake frequency: holidays/special occasions only Substance Use Type: marijuana Exam <ELEANOR Lim Last Filed: 04/23/23 18:20> Narrative Exam Narrative: GENERAL: Well-developed patient, in mild distress. HEAD: Atraumatic. Normocephalic. EYES: Pupils equal round and reactive. Extraocular motions intact. No scleral icterus. No injection or drainage. ENT: Nose without bleeding, purulent drainage. Throat without erythema, tonsillar hypertrophy or exudate. Airway patent. NECK: Trachea midline. Non tender EXTREMITIES: Left 1st MCP areas swollen and erythematous. Neurovascularly intact throughout. No palpable areas of fluctuance. Maintains good range of motion through the thumb. NEURO: AOx3. SKIN: No rash or erythema of visible areas Initial Vital Signs Initial Vital Signs: Vital Signs Temperature 98.4 F 04/23/23 17:09 Pulse Rate 80 04/23/23 17:09 Respiratory Rate 18 04/23/23 17:09 Blood Pressure 123/60 04/23/23 17:09 Pulse Oximetry 97 04/23/23 17:09 Oxygen Delivery Method Room Air 04/23/23 17:09 <Reshma Cueva DO - Last Filed: 04/24/23 07:07> Initial Vital Signs Initial Vital Signs: Vital Signs Temperature 98.4 F 04/23/23 17:09 Pulse Rate 80 04/23/23 17:09 Respiratory Rate 18 04/23/23 17:09 Blood Pressure 123/60 04/23/23 17:09 Pulse Oximetry 97 04/23/23 17:09 Oxygen Delivery Method Room Air 04/23/23 17:09 Course <ELEANOR Lim Last Filed: 04/23/23 18:20> Orders Ordered: Discontinued Medications Diphtheria/Tetanus/Acell Pertussis (Tet,Diph,Pertuss(Acell),Vac/Pf 0.5 Ml Syringe) 0.5 ml IM .ONCE ONE Stop: 04/23/23 17:28 Last Admin: 04/23/23 17:47 Dose: 0.5 ml Documented By: BS Vital Signs Vital signs: Vital Signs - 8 hr 04/23/23 17:09 Temperature 98.4 F Pulse Rate 80 Respiratory Rate 18 Blood Pressure 123/60 Pulse Oximetry 97 Oxygen Delivery Method Room Air <Reshma Cueva DO - Last Filed: 04/24/23 07:07> Orders Ordered: Discontinued Medications Diphtheria/Tetanus/Acell Pertussis (Tet,Diph,Pertuss(Acell),Vac/Pf 0.5 Ml Syringe) 0.5 ml IM .ONCE ONE Stop: 04/23/23 17:28 Last Admin: 04/23/23 17:47 Dose: 0.5 ml Documented By: BS Vital Signs Vital signs: Vital Signs - 8 hr 04/23/23 17:09 Temperature 98.4 F Pulse Rate 80 Respiratory Rate 18 Blood Pressure 123/60 Pulse Oximetry 97 Oxygen Delivery Method Room Air MDM - Wound/Laceration <Andrew Barger PA-C - Last Filed: 04/23/23 18:20> Imaging Data Extremity x-ray #1: Radiologist's Impression: [place] [address] XRay Report Signed Patient: Celia Panda MR#: [id number] : 2000 Acct:[id number] Age/Sex: 22 / F Date of Service: 04/23/23 Loc: ED Accession Number: [id number] Procedure: XR hand LT min 3V Ordering Provider: Andrew Barger P.A-C PROCEDURE: XR HAND LT MIN 3V INDICATIONS: L hand cat bite r/o FB TECHNIQUE: 3 views of the hand(s) acquired. COMPARISON: None. FINDINGS: Bones: No fractures or dislocations. Carpal bones are normally aligned. No suspicious bony lesions. Soft tissues: No suspicious soft tissue calcifications. No radiopaque foreign body. IMPRESSION: No visualized acute fracture or dislocation. However, if clinical concern and/or pain persist, short interval imaging followup in 7-10 days is recommended, as occult injury cannot be definitively excluded. No radiopaque foreign body. Dictated by: Zina Russell M.D. on 04/23/2023 at 18:08 Approved by: Zina Russell M.D. on 04/23/2023 at 18:09 MDM Narrative Medical decision making narrative: ED course: This is a 22-year-old female presents emergency department due to cat bites to the left hand. X-rays were taken which showed no evidence of foreign bodies. We will discharge home with oral Augmentin for 10 days. Full range of motion to the fingers and low concern for any kind of tendon injury. CC: Cat bite Complicating co-morbidities: None Data collected from: Previous notes Medical records reviewed: Patient was last seen in the emergency department about a year ago for colitis. History of asthma. Differential considered, but not limited to: Infection, flexor tenosynovitis, fracture Exam documented above, pertinent findings include: No changes in flexion-extension of the thumb Lab Test results independently reviewed as above. Pertinent findings: None obtained Imaging studies independently reviewed: X-ray showed no evidence of foreign bodies Scores Used: None MIPS Elements: None Consultations: None Treatments: None Re-evaluations: No Discussion: Discussed plan with the patient was comfortable with the plan Diagnosis: Cat bite Disposition: see below, along with detailed discharge instructions that have been reviewed with patient as well as indications for ED re-evaluation and additional outpatient follow up Discharge Plan Departure Patient Disposition: Home Clinical Impression: Cat bite Activity Restrictions/Additional Instructions: Thank you for coming to the [facility] Emergency Department today. Please take the oral antibiotics as prescribed Please return to the emergency department if you develop any worsening redness going up the arm, fevers, or any other concerning signs or symptoms. I hope you feel better soon. Please follow up with your primary care provider within a week if your symptoms continue. If you do not have a primary care provider please contact the [facility] Resource line at [phone]. They will ask some questions about your medical history and help you get set up with a provider in the community. Prescriptions: New amoxicillin-pot clavulanate 875-125 mg tablet 1 tab PO BID Qty: 20 0RF No Action albuterol sulfate 0.63 mg/3 mL solution for nebulization 0.63 mg INHALATION QID PRN (Reason: shortness of breath or wheezing) Qty: 75 0RF pantoprazole [Protonix] 40 mg tablet,delayed release (DR/EC) 40 mg PO DAILY Qty: 30 11RF ondansetron 4 mg tablet,disintegrating 4 mg PO TID-QID PRN (Reason: nausea and vomiting) Qty: 10 0RF Referrals: Rah Woodall MD [Primary Care Provider] - Stand Alone Forms: Patient Portal/API ED Sign-out <eRshma Cueva, - Last Filed: 04/24/23 07:07> Cosign ED Attending Gladysature Attestation: I was available for consultation.
--- NOTE | 2023-04-23 17:27 | DI.RAD.S_ITS ---
PROCEDURE: XR HAND LT MIN 3V INDICATIONS: L hand cat bite r/o FB TECHNIQUE: 3 views of the hand(s) acquired. COMPARISON: None. FINDINGS: Bones: No fractures or dislocations. Carpal bones are normally aligned. No suspicious bony lesions. Soft tissues: No suspicious soft tissue calcifications. No radiopaque foreign body. IMPRESSION: No visualized acute fracture or dislocation. However, if clinical concern and/or pain persist, short interval imaging followup in 7-10 days is recommended, as occult injury cannot be definitively excluded. No radiopaque foreign body. Dictated by: Zina Russell M.D. on 04/23/2023 at 18:08 Approved by: Zina Russell M.D. on 04/23/2023 at 18:09
[2023-04-23] MEDS: TET,DIPH,PERTUSS(ACELL),VAC/PF 0.5 ML SYRINGE IM (17:47)
[2023-04-23 18:25] VITALS: BP 101/66; PULSE 83; RESP 18; TEMP 36.7; O2SAT 95
== END 2023-04-23 18:22 | disposition home or self-care (01) ==
PROVIDERS: Emergency Provider Physician Assistant Medical; PCP Family Medicine
DX: S61.452A Open bite of left hand, initial encounter (principal); W55.01XA Bitten by cat, initial encounter; Z23 Encounter for immunization
CPT/HCPCS: 73130; 90471; 99283; 90715

== ENCOUNTER 2023-05-06 09:44 | Emergency (ER) | payer MEDICAID, SELFPAY ==
[2023-05-06 09:49] VITALS: BP 127/79; PULSE 78; RESP 15; TEMP 36.7; O2SAT 98; BMI 24.7
--- NOTE | 2023-05-06 10:06 | ED_ITS ---
HPI - Abdominal Pain General Chief Complaint: Abdominal Pain Stated Complaint: poss colitis again throwing up stomach hurts Time Seen by Provider: 05/06/23 09:52 Source: patient Mode of arrival: Ambulatory History of Present Illness HPI narrative: 22-year-old female presents for 1 day of nausea, vomiting, generalized stomach cramping. Patient states that similar thing happened 1 year prior and she was diagnosed with colitis. Patient states that this feels similar. Patient does not know what type of colitis she has, she states that she did have an EGD and colonoscopy in 2022. No medications taken prior to arrival. Related Data Previous Rx's Medication Instructions Recorded ondansetron 4 mg disintegrating 4 mg PO TID-QID PRN nausea and 07/07/22 tablet vomiting #10 tabs pantoprazole 40 mg tablet,delayed 40 mg PO DAILY #30 tabs 07/10/22 release (Protonix) albuterol sulfate 0.63 mg/3 mL 0.63 mg (3 mL) inhalation QID PRN 11/12/22 solution for nebulization shortness of breath or wheezing #75 mL amoxicillin 875 mg-potassium 1 tab PO BID #20 tabs 04/23/23 clavulanate 125 mg tablet ondansetron 4 mg disintegrating 4 mg PO Q8H PRN nausea and 05/06/23 tablet vomiting #30 tabs promethazine 25 mg tablet 25 mg PO Q6H PRN nausea and 05/06/23 vomiting #30 tabs Allergies Allergy/AdvReac Type Severity Reaction Status Date / Time No Known Drug Allergies Allergy Verified 05/06/23 09:54 Review of Systems Review of Systems Narrative: Negative except as noted above Patient History Medical History ADHD (~2004) Anxiety (~2018) Asthma (~2004) Depression (~2018) Surgical History Anesthesia No pertinent past surgical history Status post breast reduction (~05/2020) [place] teeth removed (~02/2017) Social History household members: family Smoking Status: Current every day smoker Smoking Status: Current every day smoker alcohol intake frequency: holidays/special occasions only Substance Use Type: marijuana Exam Initial Vital Signs Initial Vital Signs: Vital Signs Temperature 98.0 F 05/06/23 09:49 Pulse Rate 78 05/06/23 09:49 Respiratory Rate 15 05/06/23 09:49 Blood Pressure 127/79 05/06/23 09:49 Pulse Oximetry 98 05/06/23 09:49 Oxygen Delivery Method Room Air 05/06/23 09:49 Const: Awake, alert, uncomfortable, nontoxic appearing Cardiac: regular rate, regular rhythm RESP: unlabored, clear bilaterally, no wheezing GI: Soft, generalized tenderness to deep palpation without rebound or guarding MSK: Atraumatic, full range of motion, pulses equal Skin: Warm, Dry, intact, no rashes Neuro: AO x3, CN II-XII grossly intact, moves all extremities Course Orders Ordered: Discontinued Medications Droperidol (Droperidol 5 Mg/2 Ml Vial) 2.5 mg IV NOW ONE Stop: 05/06/23 10:21 Last Admin: 05/06/23 10:28 Dose: 2.5 mg Documented By: NOHEMI Sodium Chloride (Normal Saline 0.9%) 1,000 mls @ 1,000 mls/hr IV BOLUS ONE Stop: 05/06/23 11:02 Last Infusion: 05/06/23 11:28 Dose: Infused Documented By: Admin: 05/06/23 10:10 Dose: 1,000 mls/hr Documented By: NOHEMI Ondansetron HCl (Ondansetron 4 Mg/2 Ml Inj) 4 mg IV NOW PRN PRN Reason: Nausea And Vomiting Last Admin: 05/06/23 10:10 Dose: 4 mg Documented By: NOHEMI Vital Signs Vital signs: Vital Signs - 8 hr 05/06/23 09:49 Temperature 98.0 F Pulse Rate 78 Respiratory Rate 15 Blood Pressure 127/79 Pulse Oximetry 98 Oxygen Delivery Method Room Air MDM - Abdominal Pain Lab Data 05/06/23 10:00 05/06/23 10:00 Labs: Lab Results 05/06/23 Range/Units 10:00 WBC 6.4 (4.5-11.0) X10^3/uL RBC 4.74 (4.0-5.2) X10^6/uL Hgb 14.2 (12.0-16.0) g/dL Hct 41.8 (36-46) % MCV 88.2 (80-100) fL MCH 30.0 (26-34) PG MCHC 34.0 (30-36) % RDW 12.3 (11.6-14.8) % Plt Count 358 (150-400) X10^3/uL Neut % (Auto) 81.5 H (50-75) % Lymph % (Auto) 6.8 L (25-40) % [place] % (Auto) 7.0 (3-14) % Eos % (Auto) 4.2 H (2-4) % Baso % (Auto) 0.5 (0-2) % Neut # (Auto) 5200 (6732-4297) /uL Lymph # (Auto) 400 L (8555-2908) /uL [place] # (Auto) 500 (0-900) /uL Eos # (Auto) 300 (0-450) /uL Baso # (Auto) 0 (0-100) /uL Sodium 139 (137-145) mmol/L Potassium 4.0 (3.4-5.1) mmol/L Chloride 108 H (98-107) mmol/L Carbon Dioxide 20 L (22-32) mmol/L BUN 12 (7-17) mg/dL Creatinine 0.56 (0.52-1.04) mg/dL Estimated GFR > 60 (>60) mL/min BUN/Creatinine Ratio 21.4 (6-22) Glucose 117 H (70-100) mg/dL Calcium 10.4 H (8.4-10.2) mg/dL Total Bilirubin 1.9 H (0.2-1.3) mg/dL AST 25 (14-36) IU/L ALT 18 (<35) IU/L Alkaline Phosphatase 96 (38-126) U/L Total Protein 8.9 H (6.3-8.2) g/dL Albumin 5.1 H (3.5-5.0) g/dL Globulin 3.8 (1.7-4.1) g/dL Albumin/Globulin Ratio 1.3 (1.0-2.8) Lipase 36 (23-300) U/L Point of care testing: Point of Care Testing Test Results Negative Urine Dip Bedside Urine Glucose Negative Bedside Urine Bilirubin - Negative Bedside Urine Ketone +++ 80 Urine Specific [place] 1.025 Bedside Urine Occult Blood - Negative Bedside Urine pH 6.0 Bedside Urine Protein - Negative Bedside Urine Urobilinogen - Negative Bedside Urine Nitrite - Negative Bedside Urine Leukocytes - Negative Esterase MDM Narrative Medical decision making narrative: Well-appearing patient with generalized abdominal pain. Patient reports history of colitis, after reviewing the pathology from patient's EGD and colonoscopy there did appear to be a single focal segment of colitis that was ?most suggestive of an acute self-limited colitis (infectious vs drug/toxin induced) per pathology. Patient's abdomen is soft, there is minimal generalized tenderness to deep palpation without peritoneal signs. We will order laboratory work, however in setting of normal biopsies and otherwise benign abdominal exam do not feel that repeat CT imaging is indicated at this time. Laboratory work is reviewed, no leukocytosis, sodium 139, potassium 4.0, CO2 20, creatinine 0.56, GFR greater than 60, calcium 10.4. T bili 1.9, uncertain significance. In 2022 patient's T bili was 2.8 without cause as well. RUQ US negative for acute findings, question if secondary to acute vomiting. Patient received IV fluids and droperidol and states that her symptoms have resolved and she feels much better. She was subsequently able to tolerate p.o.. Patient counseled to follow up with her GI doctor if she continues to experience symptoms. Discharge Plan Departure Patient Disposition: Home Clinical Impression: Abdominal pain, Nausea & vomiting, Elevated bilirubin Instructions: Nausea and Vomiting-Adult Activity Restrictions/Additional Instructions: Your laboratory work today did show a slightly elevated bilirubin level, which is 1 of the markers of the liver. Your gallbladder ultrasound was normal, I do not know the cause of this elevation in the enzyme. Please follow up with your GI doctor and your primary care doctor. Prescriptions: New promethazine 25 mg tablet 25 mg PO Q6H PRN (Reason: nausea and vomiting) Qty: 30 0RF ondansetron 4 mg tablet,disintegrating 4 mg PO Q8H PRN (Reason: nausea and vomiting) Qty: 30 0RF No Action albuterol sulfate 0.63 mg/3 mL solution for nebulization 0.63 mg INHALATION QID PRN (Reason: shortness of breath or wheezing) Qty: 75 0RF pantoprazole [Protonix] 40 mg tablet,delayed release (DR/EC) 40 mg PO DAILY Qty: 30 11RF ondansetron 4 mg tablet,disintegrating 4 mg PO TID-QID PRN (Reason: nausea and vomiting) Qty: 10 0RF amoxicillin-pot clavulanate 875-125 mg tablet 1 tab PO BID Qty: 20 0RF Referrals: Rah Woodall MD [Primary Care Provider] - Stand Alone Forms: Patient Portal/API
[2023-05-06] MEDS: ONDANSETRON 4 MG/2 ML INJ IV (10:10)
[2023-05-06] MEDS: SODIUM CHLORIDE 0.9% 1,000 ML 1000 ML IV (10:10)
[2023-05-06 10:13] LABS: Add Manual Diff / Slide Review NO; Basophils Absolute Auto 0 /uL (0-100); Basophils Percent Auto 0.5 % (0-2); Eosinophils Absolute Auto 300 /uL (0-450); Eosinophils Percent Auto 4.2 % (2-4); Hematocrit 41.8 % (36-46); Hemoglobin 14.2 g/dL (12.0-16.0); Lymphocytes Absolute Auto 400 /uL (1100-4500); Lymphocytes Percent Auto 6.8 % (25-40); Mean Corpuscular Volume 88.2 fL (80-100); Monocytes Absolute Auto 500 /uL (0-900); Neutrophils Absolute Auto 5200 /uL (1500-7000); Neutrophils Percent Auto 81.5 % (50-75); Platelet Count 358 X10^3/uL (150-400); Red Blood Cell Count 4.74 X10^6/uL (4.0-5.2); Red Cell Distribution Width 12.3 % (11.6-14.8); White Blood Cell Count 6.4 X10^3/uL (4.5-11.0)
[2023-05-06 10:20] LABS: Alanine Aminotransferase 18 IU/L (<35); Albumin 5.1 g/dL (3.5-5.0); Albumin Globulin Ratio 1.3 (1.0-2.8); Alkaline Phosphatase 96 U/L (38-126); Aspartate Aminotransferase 25 IU/L (14-36); BUN Creatinine Ratio 21.4 (6-22); Bilirubin Total 1.9 mg/dL (0.2-1.3); Blood Urea Nitrogen 12 mg/dL (7-17); Calcium 10.4 mg/dL (8.4-10.2); Carbon Dioxide 20 mmol/L (22-32); Chloride 108 mmol/L (98-107); Estimated Glomerular Filt Rate > 60 mL/min (>60); Globulin 3.8 g/dL (1.7-4.1); Glucose 117 mg/dL (70-100); HEMOLYSIS < 15 (0-50); Lipase 36 U/L (23-300); Sodium 139 mmol/L (137-145); Total Protein 8.9 g/dL (6.3-8.2)
[2023-05-06] MEDS: DROPERIDOL 5 MG/2 ML VIAL 2.5 MG IV (10:28)
--- NOTE | 2023-05-06 10:51 | DI.US.S_ITS ---
PROCEDURE: US ABDOMEN LIMITED INDICATIONS: N/V/ELEVATED BILIRUBIN TECHNIQUE: Real-time focused scanning was performed of the abdomen, with image documentation. COMPARISON: [facility], , US ABDOMEN LIMITED, 07/07/2022, 20:40. FINDINGS: Liver measures 13.1 cm. Gallbladder demonstrates no stones. Wall thickness measures 1.1 mm. Common bile duct measures 2.9 mm. IMPRESSION: Unremarkable exam. Dictated by: Zina Russell M.D. on 05/06/2023 at 12:08 Approved by: Zina Russell M.D. on 05/06/2023 at 12:08
[2023-05-06 12:25] VITALS: BP 124/73; PULSE 95; RESP 14; O2SAT 95
== END 2023-05-06 12:27 | disposition home or self-care (01) ==
PROVIDERS: Emergency Provider Emergency Medicine; PCP Family Medicine
DX: R10.84 Generalized abdominal pain (principal); R11.2 Nausea with vomiting, unspecified; R17 Unspecified jaundice
CPT/HCPCS: 36415; 76705; 80053; 81003; 81025; 83690; 85025; 96361; 96374; 96375; 99284; J1790; J2405

== ENCOUNTER 2023-11-05 17:14 | Emergency (ER) | payer MEDICAID, SELFPAY ==
[2023-11-05 17:20] VITALS: BP 138/70; PULSE 100; PULSE 88; RESP 16; TEMP 36.6; O2SAT 97; O2SAT 98; BMI 24.7
--- NOTE | 2023-11-05 17:24 | DI.RAD.S_ITS ---
PROCEDURE: XR CHEST 1V INDICATIONS: chest pain TECHNIQUE: One view of the chest was acquired. COMPARISON: None. FINDINGS: Surgical changes and devices: None. Lungs and pleura: Lungs are clear. No pleural effusions or pneumothorax. Mediastinum: Mediastinal contours appear normal. Heart size is normal. Bones and chest wall: No suspicious bony lesions. Overlying soft tissues appear unremarkable. IMPRESSION: No acute cardiopulmonary abnormality is seen. Dictated by: Julio Cesar Sheldon M.D. on 11/05/2023 at 18:40 Approved by: Julio Cesar Sheldon M.D. on 11/05/2023 at 18:41
[2023-11-05 17:30] VITALS: PULSE 97; RESP 19; O2SAT 98
[2023-11-05 17:38] LABS: Add Manual Diff / Slide Review NO; Basophils Absolute Auto 0 /uL (0-100); Basophils Percent Auto 0.5 % (0-2); Eosinophils Absolute Auto 400 /uL (0-450); Eosinophils Percent Auto 4.9 % (2-4); Hematocrit 39.8 % (36-46); Hemoglobin 13.3 g/dL (12.0-16.0); Lymphocytes Absolute Auto 2900 /uL (1100-4500); Mean Corpuscular HGB Conc 33.6 % (30-36); Mean Corpuscular Volume 89.3 fL (80-100); Monocytes Absolute Auto 600 /uL (0-900); Monocytes Percent Auto 6.8 % (3-14); Neutrophils Absolute Auto 4900 /uL (1500-7000); Neutrophils Percent Auto 54.8 % (50-75); Platelet Count 367 X10^3/uL (150-400); Red Blood Cell Count 4.45 X10^6/uL (4.0-5.2); Red Cell Distribution Width 12.2 % (11.6-14.8); White Blood Cell Count 8.9 X10^3/uL (4.5-11.0)
[2023-11-05 17:51] LABS: PTT Partial Thromboplastin Tim 28 SECONDS (25.1-36.5)
[2023-11-05 17:52] LABS: Alanine Aminotransferase 22 IU/L (<35); Albumin 4.6 g/dL (3.5-5.0); Albumin Globulin Ratio 1.4 (1.0-2.8); Alkaline Phosphatase 79 U/L (38-126); Aspartate Aminotransferase 27 IU/L (14-36); BUN Creatinine Ratio 21.4 (6-22); Bilirubin Total 1.1 mg/dL (0.2-1.3); Blood Urea Nitrogen 15 mg/dL (7-17); Calcium 9.5 mg/dL (8.4-10.2); Carbon Dioxide 23 mmol/L (22-32); Chloride 104 mmol/L (98-107); Creatine Kinase 93 U/L (30-135); Estimated Glomerular Filt Rate > 60 mL/min (>60); Globulin 3.2 g/dL (1.7-4.1); Glucose 110 mg/dL (70-100); HEMOLYSIS < 15 (0-50); Lipase 35 U/L (23-300); Magnesium 1.5 mg/dL (1.6-2.3); Potassium 3.4 mmol/L (3.4-5.1); Sodium 135 mmol/L (137-145); Total Protein 7.8 g/dL (6.3-8.2)
[2023-11-05 18:00] VITALS: PULSE 81; RESP 17; O2SAT 96
[2023-11-05 18:01] VITALS: BP 108/58; PULSE 82; RESP 20; O2SAT 96
[2023-11-05 18:04] LABS: NT-proBNP (BNP-Adult 18+) 48 pg/mL (<125); Troponin I < 0.012 ng/mL (0.01-0.034)
--- NOTE | 2023-11-05 18:09 | EKG_ITS ---
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
[2023-11-05 18:30] VITALS: BP 109/79; PULSE 86; O2SAT 97
--- NOTE | 2023-11-05 18:34 | ED.GENADULT ---
HPI - General Adult General Chief complaint: Syncope Stated complaint: felt faint Time Seen by Provider: 11/05/23 17:59 Source: patient and EMS Mode of arrival: EMS History of Present Illness HPI narrative: Patient is a 23-year-old female who was at work when she stated that she had a sudden onset of feeling like her heart was beating fast and lightheaded and felt like she was going to pass out. He was not feeling particularly anxious of the time. She did not pass out. No headache. She went and sat down and then started to feel better. She then had a return of the symptoms. The whole event lasting a couple minutes. At the time of my evaluation she reports she was feeling much better. Has never had any issues like this in the past. Has had issues with palpitations in the past and has worn a Holter monitor but she states that would turned out to be anxiety. She was not feeling anxious today. Has a history of asthma. Has had no shortness of breath. Related Data Previous Rx's Medication Instructions Recorded ondansetron 4 mg disintegrating 4 mg PO TID-QID PRN nausea and 07/07/22 tablet vomiting #10 tabs pantoprazole 40 mg tablet,delayed 40 mg PO DAILY #30 tabs 07/10/22 release (Protonix) amoxicillin 875 mg-potassium 1 tab PO BID #20 tabs 04/23/23 clavulanate 125 mg tablet ondansetron 4 mg disintegrating 4 mg PO Q8H PRN nausea and 05/06/23 tablet vomiting #30 tabs promethazine 25 mg tablet 25 mg PO Q6H PRN nausea and 05/06/23 vomiting #30 tabs fluticasone propionate 44 2 puff inhalation DAILY #10.6 grams 07/22/23 mcg/actuation HFA aerosol inhaler albuterol sulfate 0.63 mg/3 mL 0.63 mg (3 mL) inhalation QID PRN 10/04/23 solution for nebulization shortness of breath or wheezing #75 mL Allergies Allergy/AdvReac Type Severity Reaction Status Date / Time No Known Drug Allergies Allergy Verified 05/06/23 09:54 Review of Systems Review of Systems ROS Unobtainable: All systems reviewed & are unremarkable except as noted in HPI and below Patient History Medical History Depression (~2019) Anxiety (~2018) Asthma (~2004) ADHD (~2004) Surgical History Anesthesia No pertinent past surgical history Status post breast reduction (~05/2020) [place] teeth removed (~02/2017) Social History household members: family Smoking Status: Current every day smoker Smoking Status: Current every day smoker alcohol intake frequency: holidays/special occasions only Substance Use Type: marijuana Exam Initial Vital Signs Initial Vital Signs: Vital Signs Temperature 97.9 F 11/05/23 17:20 Pulse Rate 88 11/05/23 17:20 Respiratory Rate 16 11/05/23 17:20 Blood Pressure 138/70 11/05/23 17:20 Pulse Oximetry 98 11/05/23 17:20 Oxygen Delivery Method Room Air 11/05/23 17:20 Const General: cooperative, comfortable and No ill appearing HENMT Head: normal to inspection and normocephalic Resp Effort & Inspection: normal respiratory effort Auscultation: clear to auscultation bilaterally Cardio Rate: regular rate Rhythm: regular rhythm Skin General: no rashes or lesions noted Neuro General: patient alert, patient awake, patient oriented x3 and moves all extremities Extrem General: capillary refill normal Course Orders Ordered: ED Orders 11/05/23 17:24 XR chest 1V Stat EKG-12 Lead Stat 11/05/23 17:27 Complete Blood Count AUTO DIFF Stat Comprehensive Metabolic Panel Stat Lipase Stat Magnesium Stat NT-proBNP (BNP-Adult 18+) Stat PTT Partial Thromboplastin Ariel Stat Prothrombin Time INR Stat Troponin & CK Cardiac Panel Stat Discontinued Medications Aspirin (Aspirin 81 Mg Chew Tab) 324 mg PO NOW ONE Stop: 11/05/23 17:25 Vital Signs Vital signs: Vital Signs - 8 hr 11/05/23 17:20 11/05/23 17:20 11/05/23 17:30 Temperature 97.9 F Pulse Rate 88 100 H 97 H Respiratory Rate 16 16 19 Blood Pressure 138/70 Pulse Oximetry 98 97 98 Oxygen Delivery Method Room Air 11/05/23 18:00 11/05/23 18:01 11/05/23 18:01 Temperature Pulse Rate 81 82 Respiratory Rate 17 20 Blood Pressure 108/58 L Pulse Oximetry 96 96 Oxygen Delivery Method 11/05/23 18:30 11/05/23 18:30 Temperature Pulse Rate 86 Respiratory Rate Blood Pressure 109/79 Pulse Oximetry 97 Oxygen Delivery Method Medical Decision Making Lab Data Lab results reviewed: Yes I reviewed the patient's lab results. 11/05/23 17:27 11/05/23 17:27 Labs: Lab Results 11/05/23 Range/Units 17:27 WBC 8.9 (4.5-11.0) X10^3/uL RBC 4.45 (4.0-5.2) X10^6/uL Hgb 13.3 (12.0-16.0) g/dL Hct 39.8 (36-46) % MCV 89.3 (80-100) fL MCH 30.0 (26-34) PG MCHC 33.6 (30-36) % RDW 12.2 (11.6-14.8) % Plt Count 367 (150-400) X10^3/uL Neut % (Auto) 54.8 (50-75) % Lymph % (Auto) 33.0 (25-40) % [place] % (Auto) 6.8 (3-14) % Eos % (Auto) 4.9 H (2-4) % Baso % (Auto) 0.5 (0-2) % Neut # (Auto) 4900 (7498-8538) /uL Lymph # (Auto) 2900 (1697-5875) /uL [place] # (Auto) 600 (0-900) /uL Eos # (Auto) 400 (0-450) /uL Baso # (Auto) 0 (0-100) /uL PT 12.0 (9.4-12.5) SECONDS INR 1.0 (0.9-1.3) APTT 28 (25.1-36.5) SECONDS Sodium 135 L (137-145) mmol/L Potassium 3.4 (3.4-5.1) mmol/L Chloride 104 (98-107) mmol/L Carbon Dioxide 23 (22-32) mmol/L BUN 15 (7-17) mg/dL Creatinine 0.70 (0.52-1.04) mg/dL Estimated GFR > 60 (>60) mL/min BUN/Creatinine Ratio 21.4 (6-22) Glucose 110 H (70-100) mg/dL Calcium 9.5 (8.4-10.2) mg/dL Magnesium 1.5 L (1.6-2.3) mg/dL Total Bilirubin 1.1 (0.2-1.3) mg/dL AST 27 (14-36) IU/L ALT 22 (<35) IU/L Alkaline Phosphatase 79 (38-126) U/L Total Creatine Kinase 93 (30-135) U/L Troponin I < 0.012 (0.01-0.034) ng/mL NT-Pro-B Natriuret Pep 48 (<125) pg/mL Total Protein 7.8 (6.3-8.2) g/dL Albumin 4.6 (3.5-5.0) g/dL Globulin 3.2 (1.7-4.1) g/dL Albumin/Globulin Ratio 1.4 (1.0-2.8) Lipase 35 (23-300) U/L ECG Data Attestation: I personally reviewed and interpreted this ECG as follows: Interpretation: Sinus tachycardia Ventricular rate 101 Normal axis Normal QRS Normal QTC No ST T wave changes MDM Narrative Medical decision making narrative: Patient did have an episode what sounds like presyncope. Has had a normal rhythm on her EKG and on the monitor. Labs unremarkable. She was now asymptomatic. We discussed presyncope. We discussed the lack of a definitive diagnosis. This does not sound like it was seizure activity. This also did not particularly sound like she was anxious at the time. Advised the patient that she should contact her primary doctor for follow-up. She was given return precautions. She expressed understanding and agreement. Discharge Plan Departure Patient Disposition: Home Clinical Impression: Pre-syncope Instructions: Fainting Activity Restrictions/Additional Instructions: Continue to take all of your medications as directed. Contact your primary doctor for follow-up. Return to the emergency department for new or worsening symptoms. Prescriptions: No Action fluticasone propionate 44 mcg/actuation HFA aerosol inhaler 2 puff inhalation DAILY Qty: 10.6 0RF albuterol sulfate 0.63 mg/3 mL solution for nebulization 0.63 mg INHALATION QID PRN (Reason: shortness of breath or wheezing) Qty: 75 0RF pantoprazole [Protonix] 40 mg tablet,delayed release (DR/EC) 40 mg PO DAILY Qty: 30 11RF promethazine 25 mg tablet 25 mg PO Q6H PRN (Reason: nausea and vomiting) Qty: 30 0RF ondansetron 4 mg tablet,disintegrating 4 mg PO Q8H PRN (Reason: nausea and vomiting) Qty: 30 0RF ondansetron 4 mg tablet,disintegrating 4 mg PO TID-QID PRN (Reason: nausea and vomiting) Qty: 10 0RF amoxicillin-pot clavulanate 875-125 mg tablet 1 tab PO BID Qty: 20 0RF Referrals: Rah Woodall MD [Primary Care Provider] - Stand Alone Forms: Patient Portal/API, Work Release Note
== END 2023-11-05 18:45 | disposition home or self-care (01) ==
PROVIDERS: Emergency Medicine; Emergency Provider Emergency Medicine; PCP Family Medicine
DX: R55 Syncope and collapse (principal); R00.0 Tachycardia, unspecified
CPT/HCPCS: 71045; 80053; 82550; 83690; 83735; 83880; 84484; 85025; 85610; 85730; 93005; 93010; 99281; 99284

== ENCOUNTER → 2024-01-24 13:13 | Outpatient (CLI) | payer MEDICAID, SELFPAY ==
[2024-01-24 15:36] LABS: Erythrocyte Sedimentation Rate 6 MM/HR (0-20)
== END ==
PROVIDERS: PCP Family Medicine; Referring Provider Physician Assistant; Visit Provider Physician Assistant
DX: R10.9 Unspecified abdominal pain (principal); G89.29 Other chronic pain; R07.9 Chest pain, unspecified
CPT/HCPCS: 82784; 83013; 83516; 85651

== ENCOUNTER 2024-09-01 13:53 | Emergency (ER) | payer MEDICAID, SELFPAY ==
[2024-09-01 13:55] VITALS: BP 117/69; PULSE 73; O2SAT 98
[2024-09-01 13:59] VITALS: BP 117/69; PULSE 79; RESP 18; TEMP 37.4; O2SAT 97; BMI 24.0
[2024-09-01 14:00] VITALS: BP 115/69; PULSE 90
--- NOTE | 2024-09-01 14:04 | DI.RAD.S_ITS ---
PROCEDURE: XR CHEST 1V INDICATIONS: Chest Pain TECHNIQUE: One view of the chest was acquired. COMPARISON: [facility], CR, XR CHEST 1V, 11/05/2023, 17:24. FINDINGS: Surgical changes and devices: None. Lungs and pleura: Lungs are clear. No pleural effusions or pneumothorax. Mediastinum: Mediastinal contours appear normal. Heart size is normal. Bones and chest wall: No suspicious bony lesions. Overlying soft tissues appear unremarkable. IMPRESSION: No acute cardiopulmonary abnormality is seen. Dictated by: Randy Cheney M.D. on 09/01/2024 at 14:21 Approved by: Randy Cheney M.D. on 09/01/2024 at 14:21
--- NOTE | 2024-09-01 14:04 | EKG_ITS ---
[address] [address] Test Date: 2024-09-01 Pat Name: Celia Panda Department: Room: Gender: Female International Account Manager: SAJAN : 2000 Requested By: Order Number: [id number] Reading MD: Cesar Nieves Measurements Intervals [place] Rate: 74 P: 35 [place]: 132 QRS: 49 QRSD: 76 T: 25 QT: 380 QTc: 421 Interpretive Statements Normal sinus rhythm with sinus arrhythmia Electronically Signed On 09-15-2024 8:11:27 PDT by Cesar Nieves
--- NOTE | 2024-09-01 14:14 | ED_ITS ---
HPI - Chest Pain General Chief Complaint: Chest Pain Stated Complaint: Chest Pain, Anxiety Time Seen by Provider: 09/01/24 14:10 Source: patient and EMS Mode of arrival: EMS Limitations: no limitations History of Present Illness HPI narrative: Pt presents to the ER with a past medical history significant for anxiety and asthma. 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 The chest pain was described as crushing and lasted less than 5 minutes, but the patient continues to feel weak. She denies passing out but felt very weak and had to sit down. The patient reports never having felt like this before. She has a history of anxiety and was previously seen by a cap parts cutter at age 14-15 for similar symptoms, which were attributed to anxiety at that time. The patient has asthma but hasn't used her albuterol inhaler recently. She denies recent fever, cough, or congestion. The patient reports occasional alcohol use and mentions quitting marijuana use recently. She denies use of other recreational drugs. Her last menstrual period was on the 14th of last month, and she reports her periods have been irregular lately. She is not on control. Related Data Previous Rx's ?Medication ?Instructions ?Recorded albuterol sulfate 0.63 mg/3 mL 0.63 mg (3 mL) inhalati on QID PRN 11/22/23 solution for nebulization shortness of breath or wheez ing #75 mL fluticasone propionate 44 2 puff inhalation DAILY #10. 6 grams 11/22/23 mcg/actuation HFA aerosol inhaler ondansetron 4 mg disintegrating 4 mg PO Q8H PRN nausea and 11/22/23 tablet vomiting #30 tabs pantoprazole 40 mg tablet,delayed 40 mg PO DAILY #30 t abs 01/18/24 release (Protonix) Allergies Allergy/AdvReac Type Severity Reaction Status Date / Time No Known Drug Allergies Allergy Verified 09/01/24 13:59 Patient History Medical History Depression (~2018) Anxiety (~2018) Asthma (~2004) ADHD (~2004) Surgical History Anesthesia No pertinent past surgical history Status post breast reduction (~05/2020) [place] teeth removed (~02/2017) Social History household members: family Smoking Status: Current some day smoker Smoking Status: Current some day smoker alcohol intake frequency: holidays/special occasions only Exam Narrative Exam Narrative: VS as noted above Focused physical exam as follows: General: Well developed, well nourished, no acute distress, mildly anxious appearing HEENT: pink palpebral conjunctiva, anicteric sclera, TIFFANY, moist mucous membranes, no JVD, no cervical lymphadenopathy Lungs: no respiratory distress, clear to auscultation without wheezes or crackles; equal breath sounds Heart: normal rate, regular rhythm, no appreciable murmurs Abdomen: soft, nontender, no rebound or rigidity Musculoskeletal: no gross deformities with full ROM in all extremities, no pedal edema Skin: pink, warm; no rashes Neuro: ?AAOx3, GCS 15, nonfocal exam Psyche: no SI/HI, normal affect Initial Vital Signs Initial Vital Signs: Vital Signs Pulse Rate 73 09/01/24 13:55 Blood Pressure 117/69 09/01/24 13:55 Pulse Oximetry 98 09/01/24 13:55 Course Orders Ordered: Discontinued Medications Aspirin (Aspirin 81 Mg Chew Tab) 324 mg PO NOW ONE Stop: 09/01/24 14:05 Last Admin: 09/01/24 16:17 Dose: Not Given Documented By: RB Vital Signs Vital signs: Vital Signs - 8 hr 09/01/24 13:59 Temperature 99.3 F Pulse Rate 79 Respiratory Rate 18 Blood Pressure 117/69 Pulse Oximetry 97 Oxygen Delivery Method Room Air MDM - Chest Pain Medical Records Data Medical records narrative: HPI, PMHx, PSHx, Medication list, Allergies, ROS and Focused exam were reviewed above. ?Differential diagnosis as noted below. ?Social determinants affecting care considered. ?All of these were taken into consideration warranting above listed work up. ?Consultations as deemed necessary were documented below (if listed). Labs (if ordered and noted) were independently reviewed by me. Imaging studies (if ordered and noted) were independently reviewed by me EKG (if noted) was independently reviewed by me External documents (if reviewed) are documented above Initial VS noted above. ? Differential diagnosis considered include (but not limited to) the following: ACS, cardiac dysrhythmia, anxiety, asthma exacerbation, pneumonia, pleurisy, hiatal hernia, GERD, gastritis, gastric ulcer, pancreatitis, cholelithiasis/cystitis, electrolyte imbalance, liver or kidney failure, hypo/hyperglycemia, adverse effect of illicit drug/ETOH, dehydration, PE Pt interviewed and examined. Labs reviewed - unremarkable. CXR unremarkable. Reassessed pt - feeling better. Discussed reassuring work up and plan of care. Stable for discharge. Lab Data 09/01/24 14:11 09/01/24 14:11 Labs: Lab Results 09/01/24 Range/Units 14:11 WBC 8.1 (4.5-11.0) X10^3/uL RBC 4.34 (4.0-5.2) X10^6/uL Hgb 13.2 (12.0-16.0) g/dL Hct 37.6 (36-46) % MCV 86.7 (80-100) fL MCH 30.4 (26-34) PG MCHC 35.1 (30-36) % RDW 12.2 (11.6-14.8) % Plt Count 343 (150-400) X10^3/uL Neut % (Auto) 64.0 (50-75) % Lymph % (Auto) 22.8 L (25-40) % [place] % (Auto) 7.0 (3-14) % Eos % (Auto) 5.3 H (2-4) % Baso % (Auto) 0.9 (0-2) % Neut # (Auto) 5200 (8669-0225) /uL Lymph # (Auto) 1800 (3208-4168) /uL [place] # (Auto) 600 (0-900) /uL Eos # (Auto) 400 (0-450) /uL Baso # (Auto) 100 (0-100) /uL PT 12.5 (9.4-12.5) SECONDS INR 1.1 (0.9-1.3) APTT 28 (25.1-36.5) SECONDS D-Dimer < 215 (<500) ng/ml Sodium 137 (137-145) mmol/L Potassium 4.1 (3.4-5.1) mmol/L Chloride 108 H (98-107) mmol/L Carbon Dioxide 22 (22-32) mmol/L BUN 15 (7-17) mg/dL Creatinine 0.65 (0.52-1.04) mg/dL Estimated GFR > 60 (>60) mL/min BUN/Creatinine Ratio 23.1 H (6-22) Glucose 99 (70-99) mg/dL Calcium 9.1 (8.4-10.2) mg/dL Magnesium 1.8 (1.6-2.3) mg/dL Total Bilirubin 1.4 H (0.2-1.3) mg/dL AST 27 (14-36) IU/L ALT 20 (<35) IU/L Alkaline Phosphatase 74 (38-126) U/L Total Creatine Kinase 65 (30-135) U/L Troponin I < 0.012 (0.01-0.034) ng/mL NT-Pro-B Natriuret Pep 88 (<125) pg/mL Total Protein 7.6 (6.3-8.2) g/dL Albumin 4.5 (3.5-5.0) g/dL Globulin 3.1 (1.7-4.1) g/dL Albumin/Globulin Ratio 1.5 (1.0-2.8) Lipase 39 (23-300) U/L Serum , Qual Negative (Negative) ECG Data Interpretation: 1410 - NSR @ 74; no STTW changes; QTc 421 Discharge Plan Departure Patient Disposition: Home Clinical Impression: Chest pain Qualifiers: Chest pain type: unspecified Qualified Code(s): R07.9 - Chest pain, unspecified Instructions: DI for Chest Pain Activity Restrictions/Additional Instructions: Work up today was generally reassuring with no serious cause of your symptoms. Follow up with your regular doctor as needed. Return to the ER if with worsening symptoms. Prescriptions: No Action albuterol sulfate 0.63 mg/3 mL solution for nebulization 0.63 mg INHALATION QID PRN (Reason: shortness of breath or wheezing) Qty: 75 3RF fluticasone propionate 44 mcg/actuation HFA aerosol inhaler 2 puff inhalation DAILY Qty: 10.6 3RF ondansetron 4 mg tablet,disintegrating 4 mg PO Q8H PRN (Reason: nausea and vomiting) Qty: 30 3RF pantoprazole [Protonix] 40 mg tablet,delayed release (DR/EC) 40 mg PO DAILY Qty: 30 1RF Referrals: Rah Woodall MD [Primary Care Provider, Family Practice] Stand Alone Forms: Patient Portal/API
[2024-09-01 14:24] LABS: Add Manual Diff / Slide Review NO; Hematocrit 37.6 % (36-46); Hemoglobin 13.2 g/dL (12.0-16.0); Lymphocytes Absolute Auto 1800 /uL (1100-4500); Mean Corpuscular HGB Conc 35.1 % (30-36); Mean Corpuscular Hemoglobin 30.4 PG (26-34); Mean Corpuscular Volume 86.7 fL (80-100); Platelet Count 343 X10^3/uL (150-400)
[2024-09-01 14:30] VITALS: BP 113/70; PULSE 85; RESP 18
[2024-09-01 14:33] LABS: INR 1.1 (0.9-1.3); Prothrombin Time 12.5 SECONDS (9.4-12.5)
[2024-09-01 14:35] LABS: PTT Partial Thromboplastin Tim 28 SECONDS (25.1-36.5)
[2024-09-01 14:39] LABS: Pregnancy Test Serum,Qual Negative (Negative)
[2024-09-01 14:40] LABS: Alanine Aminotransferase 20 IU/L (<35); Albumin 4.5 g/dL (3.5-5.0); Albumin Globulin Ratio 1.5 (1.0-2.8); Alkaline Phosphatase 74 U/L (38-126); Blood Urea Nitrogen 15 mg/dL (7-17); Calcium 9.1 mg/dL (8.4-10.2); Carbon Dioxide 22 mmol/L (22-32); Chloride 108 mmol/L (98-107); Creatine Kinase 65 U/L (30-135); Estimated Glomerular Filt Rate > 60 mL/min (>60); Globulin 3.1 g/dL (1.7-4.1); Glucose 99 mg/dL (70-99); HEMOLYSIS < 15 (0-50); Lipase 39 U/L (23-300); Magnesium 1.8 mg/dL (1.6-2.3); Potassium 4.1 mmol/L (3.4-5.1); Sodium 137 mmol/L (137-145); Total Protein 7.6 g/dL (6.3-8.2)
[2024-09-01 14:52] LABS: NT-proBNP (BNP-Adult 18+) 88 pg/mL (<125); Troponin I < 0.012 ng/mL (0.01-0.034)
[2024-09-01 15:00] VITALS: BP 104/66; PULSE 74; RESP 21; O2SAT 98
[2024-09-01 16:20] VITALS: BP 104/67; PULSE 72; RESP 18; TEMP 36.8; O2SAT 99
== END 2024-09-01 16:21 | disposition home or self-care (01) ==
PROVIDERS: Emergency Provider Emergency Medicine; PCP Family Medicine
DX: R07.9 Chest pain, unspecified (principal); H53.8 Other visual disturbances; R53.1 Weakness
CPT/HCPCS: 36415; 71045; 80053; 82550; 83690; 83735; 83880; 84484; 84703; 85025; 85379; 85610; 85730; 93005; 99283; 99284